=== PATIENT | male | born 1955 | race Caucasian/White ===

== ENCOUNTER 2018-10-14 10:50 | Outpatient (CLI) | payer MEDICAID ==
[~2018-10-14] VITALS: Ht 175.3 cm; Wt 86.8 kg
--- NOTE | ~2018-10-14 | HEMODYNAMI ---
PATIENT:LYNDON JENKINS MEDICAL RECORD: [id number] : 57 LOCATION:[facility] ADMISSION DATE: 10/14/18 Generatedon:10/14/201814:08 Patient name: LYNDON JENKINS Patient #: [id number] SSN: D OB: 1955 Date of study: 10/14/2018 Page: Of Hemodynamic Procedure Report Patient Data Patient Demographics Procedure consent was obtained First Name: LYNDON Gender: Male Last Name: ALICE : 1955 Patient #: [id number] Age: 63 year(s) Race: Additional ID: [id number] Contact details [address]: [address] [place] [address] State: [place] City: [place] Zip code: [address] Past Medical History Allergies: No known allergies Admission Admission Data Admission Date: 10/14/2018 Admission Time: 10:50 Admit Source: Other Lab Results Lab Result Date: 10/14/2018 Lab Result Time: 11:23 Biochemistry Name Units Result Min Max BUN mg/dl 22 --(----)-* 7 18 Creatinine mg/dl 0.8 --(-*--)-- 0.6 1.3 CBC Name Units Result Min Max Hematocrit % 45.8 --(-*--)-- 42 54 Hemoglobin g/dl 15.8 --(--*-)-- 13.5 17.5 Procedure Procedure Types Cath Procedure Diagnostic Procedure Cardioversion External NIRU Procedure Description Procedure Date Procedure Date: 10/14/2018 Procedure Start Time: 13:38 Procedure End Time: 14:06 Procedure Staff Name Function Domingo Wayne MD Performing Physician Alex Castillo RT Monitor Renate Coleman RT Fur Clipper Liz Kelly RN Nurse Alphonso Christina Pallet Repairer Robert Weber MD Additional personnel Procedure Data Cath Procedure Fluoroscopy Diagnostic fluoroscopy Total fluoroscopy Time: 0 time: 0 min min Diagnostic fluoroscopy Total fluoroscopy dose: 0 dose: 0 mGy mGy Contrast Material Contrast Material Type Amount (ml) Isovue 300 0 Estimated blood loss: 0 ml Procedure Complications No complications Procedure Medications Medication Administration Route Dosage Oxygen etCO2 Nasal cannula 2 l/min Hurricaine [place] P.O. 1 Sprays Refer to Anesthesia Notes for Sedation Medications Hemodynamics Rest HGB: 15.8 (g/dl) Heart Rate: 145 (bpm) Snapshots Pre Cath Intra NCS Post Cath Vital Signs Time Heart Resp SPO2 etCO2 NIBP (mmHg) Rhythm Pain Sedation Rate (ipm) (%) (mmHg) Status Level (bpm) 12:52:18 145 21 98 2.9 118/98(106) A-Flutter 0 (11) 10(A) , No pain 12:56:24 144 17 98 0 114/94(106) A-Flutter 0 (11) 10(A) , No pain 13:00:32 145 18 98 11.9 118/84(100) A-Flutter 0 (11) 10(A) , No pain 13:04:41 144 27 98 29.1 103/79(94) A-Flutter 0 (11) 10(A) , No pain 13:08:43 143 17 96 23.1 109/88(92) A-Flutter 0 (11) 10(A) , No pain 13:12:53 143 33 98 24.6 108/77(88) A-Flutter 0 (11) 10(A) , No pain 13:16:57 142 24 97 22.4 114/92(104) A-Flutter 0 (11) 10(A) , No pain 13:21:03 142 14 98 22.4 118/95(107) A-Flutter 0 (11) 10(A) , No pain 13:25:10 145 15 98 16.4 116/87(99) A-Flutter 0 (11) 10(A) , No pain 13:29:16 143 13 96 21.6 115/94(105) A-Flutter 0 (11) 10(A) , No pain 13:33:26 141 15 94 15.7 109/84(100) A-Flutter 0 (11) 10(A) , No pain 13:37:34 139 26 94 16.4 106/81(91) A-Flutter 0 (11) 9(A) , No pain 13:41:40 137 35 96 5.2 110/84(97) A-Flutter 0 (11) 9(A) , No pain 13:45:52 110 16 96 14.2 110/73(85) A-Flutter 0 (11) 9(A) , No pain 13:48:44 90 16 95 0 98/36(78) NSR 0 (11) 9(A) , No pain 13:54:05 116 24 96 0 159/136(150) A-Fib 0 (11) 10(A) , No pain 13:55:11 124 23 96 0 89/78(85) A-Fib 0 (11) 9(A) , No pain 14:04:16 91 24 95 0 103/66(90) NSR 0 (11) 10(A) , No pain Medications Time Medication Route Dose Verified Delivered Reason Notes Effectiv eness by by 13:04:41 Oxygen etCO2 2 Dom[place] used for Nasal l/min St Mehdi Kelly RN procedure cannula 13:04:49 Hurricaine P[address]O. 1 Domingo [place] Per Sc[place] Sprays St Mehdi Kelly RN physician 13:04:53 Refer to Domingo Hill Anesthesia St Mehdi Kelly RN Notes for MD Sedation Medications Procedure Log Time Note 12:35:13 Renate Counts RT(R) sent for patient. Start room use. 12:38:11 Informed consent obtained and on chart 12:38:15 Admit Source: Other 12:38:37 Diagnostic Cath status Elective 12:38:39 Time tracking: Regular hours (M-F 7:00 - 5:00) 12:38:42 Plan of Care:Hemodynamics will remain stable., Cardiac rhythm will remain stable., Comfort level will be maintained., Respiratory function will remain adequate., Patient/ family verbilizes understanding of procedure., Procedure tolerated without complication., Recovers from procedure without complications.. 12:40:08 H&P Date Dictated: 10/09/2018 Within 30 days and on chart., H&P Addendum completed by physician on day of procedure. (MUST COMPLETE FOR ALL OUTPATIENTS). 12:47:25 Patient received from Pre/Post Procedure Room to [facility] 3 Alert and oriented. Tansferred to table in Supine position. 12:47:26 Warm blankets applied, and nichoals hugger turned on for patient comfort. 12:47:26 Correct patient and procedure confirmed by team. 12:47:27 ECG and BP/O2 sat monitors applied to patient. 12:47:28 Pre-procedure instructions explained to patient. 12:47:29 Pre-op teaching completed and patient verbalized understanding. 12:47:30 Family in waiting room. 12:47:32 Patient NPO since Midnight. 12:47:53 Patient allergic to No known allergies 12:47:55 Is the patient allergic to Iodine/contrast media? No. 12:47:57 Is patient on blood thinner?Yes 12:48:09 ACC The patient was administered the following blood thiners within the last 24 hours: Xarelto 12:48:11 Patient diabetic? No. 12:48:15 Previous problem with sedation/anesthesia? No ? 12:48:52 Snore? Yes 12:48:54 If diabetic: On Metformin? Yes 12:48:58 If on Metformin: Last Dose? 10/14/2018 12:49:09 Airway obstruction? Yes copd 12:49:37 Sleep apnea? No 12:49:38 Deviated septum? No 12:49:38 Opens mouth fully? Yes 12:49:50 Sticks out tongue? Yes 12:49:54 Dentures? No ? 12:50:01 IV patent on arrival in left antecubital with 0.9% NaCl at [facility]. 12:50:44 Lab Result : BUN 22 mg/dl 12:50:44 Lab Result : Creatinine 0.8 mg/dl 12:50:44 Lab Result : Hemoglobin 15.8 g/dl 12:50:44 Lab Result : Hematocrit 45.8 % 12:50:46 Lab results completed and on chart. 12:51:11 Alphonso Christina Education Specialist present for NIRU. 12:51:16 Baseline sample Acquired. 12:51:16 Vital chart was started 12:51:21 Rhythm: atrial fibrillation 12:51:23 Full Disclosure recording started 12:51:30 Alarms reviewed by RParas N. 13:04:41 Oxygen 2 l/min etCO2 Nasal cannula was administered by Liz Kelly RN; used for procedure; 13:04:49 Hurricaine [place] 1 Sprays P.O. was administered by Liz Kelly RN; Per physician; 13:04:53 Refer to Anesthesia Notes for Sedation Medications was administered by Buffie Kelly RN; ; 13:20:19 Alphonso Christina present and monitoring patient for TIVA. 13:20:28 Quick Combo opened to sterile field. 13:20:32 Quick combo pads placed on patients chest and back. 13:21:47 Robert Weber MD present and monitoring patient for TIVA. 13:37:52 Physician arrived 13:37:52 --------ALL STOP TIME OUT------ 13:37:53 Final Timeout: patient, procedure, and site verified with staff and physician. All members of the team are in agreement. 13:38:15 Sedation plan: TIVA Medication:Propofol 13:38:48 Procedure started. 13:39:24 NIRU started. 13:44:13 NIRU completed. 13:44:54 Defibrillator synced and charged to 200 Joules. 13:45:09 Shock delivered. 13:45:19 Patient cardioverted to sinus rhythm . 13:56:57 Pt. transitioned into Afib. 13:58:10 Defibrillator synced and charged to 200 Joules. 13:58:13 Shock delivered. 13:58:26 Patient cardioverted to sinus rhythm . 13:58:29 Procedure ended.(Physican Out) 13:58:51 Fluoroscopy time 00.00 minutes. 13:59:16 Flurop Dose total: 0 13:59:16 Fluoroscopy dose: 0 mGy 13:59:26 Contrast amount:Isovue 300 0ml. 13:59:31 Post Procedure Pulses reassessed and unchanged 13:59:33 Post procedure rhythm: sinus rhythm 13:59:36 Estimated blood loss: 0 ml 13:59:39 Post procedure instruction explained to patient.Patient verbalizes understanding. 13:59:42 Patient needs reinforcement of post procedure teaching. 13:59:45 Procedure and supply charges have been captured, reviewed, submitted and are correct. 13:59:48 See physician's report for complete and final results. 14:00:08 Procedure Complication : No complications 14:06:35 Report given to Pre/Post Procedure Room. 14:06:36 Patient transfered to Pre/Post Procedure Room with Stretcher. 14:06:38 Procedure ended. 14:06:38 Full Disclosure recording stopped 14:06:41 End room use (Document Last) Device Usage Item Manufacture Quantity Catalog Hospital Part Current Minimal Lot# / Name Number Charge Number Stock Stock Seri al# Code [facility] 1 [id number] Combo Signature Audit [place] Stage Time Signature Unsigned Intra-Procedure 10/14/2018 Alex Castillo 2:08:23 PM RT(R) Signatures Monitor : Alex Castillo RT Signature : Date : Time : [place] [id number] [facility] [place] [address]
[~2018-10-14 10:50] MED LIST: AMBIEN10 MG PO; BAYER CHEWABLE81 MG PO; DEXILANT60 MG PO; HYDROCODONE-APA1 TAB PO; ISOSORBIDE MONO60 M1 PO; JANUVIA50 MG PO; PLAVIX75 MG PO
[2018-10-14] MEDS ORDERED: LIPITOR10 MG PO (11:05)
[2018-10-14] MEDS ORDERED: BETAPACE 80 MG80 MG PO (11:06)
[2018-10-14] MEDS ORDERED: XARELTO15 MG PO (11:06)
[2018-10-14] MEDS ORDERED: GLYBURIDE5 M1 PO (11:06)
[2018-10-14 11:11] VITALS: BP 124/79; Ht 175.3 cm; Wt 86.8 kg
[2018-10-14 11:30] LABS: BASOPHILS 0.7 % (0-2); EOSINOPHILS 3.6 % (0-7); HEMATOCRIT 45.8 % (42.0-54.0); HEMOGLOBIN 15.8 g/dL (13.5-17.5); IMMATURE GRANULOCYTES 0.7 % (0-5); LYMPHOCYTES 24.1 % (15-50); MCH 33.8 pg (26.0-34.0); MCHC 34.5 g/dL (31.0-37.0); MCV 97.9 fL (80.0-100.0); MEAN PLATELET VOLUME 11.2 fL (7.4-10.4); NEUTROPHILS 59.9 % (40-80); PLATELET COUNT 152 10x3/uL (130-400); RBC 4.68 10x6/uL (4.20-6.10); RDW 13.2 % (11.5-14.5); WBC 7.6 10x3/uL (4.8-10.8)
[2018-10-14 11:40] LABS: CALC OSMOLALITY 285 mosm/kg (275-300); CALCIUM 8.7 mg/dL (8.5-10.1); CARBON DIOXIDE 19.7 mmol/L (21.0-32.0); CHLORIDE - SERUM 108 mmol/L (98-107); CREATININE - SERUM 0.8 mg/dL (0.6-1.3); GLUCOSE 164 mg/dL (74-106); INR 1.09 (0.85-1.17); POTASSIUM - SERUM 4.3 mmol/L (3.5-5.1); PROTIME 13.6 SECONDS (11.6-15.0); SODIUM 140 mmol/L (136-145); UREA NITROGEN 22 mg/dL (7-18); eGFR NON AFRICAN AMERICAN > 90 mL/min (90-120)
--- NOTE | 2018-10-14 14:16 | NUR ---
RECIEVED TO ROOM VIA STRETCHER FROM RECOVERY AGENT WITH SINUS WITH PVC'S. PATIENT CONNECTED TO MONITOR FOR OBSERVATION. NAUSEA IS DENIED CALL LIGHT IN REACH
--- NOTE | 2018-10-14 14:31 | NUR ---
PATIENT REMAINS IN SINUS WITH NEEDS PROVIDED TO BEDSIDE TOLERATING SIPS OF WATER WITH NAUSEA DENIED
--- NOTE | 2018-10-14 14:40 | NUR ---
PATIENT BACK IN A FIB WITH RATE OF 146 DR NINO NOTIFIED.
[2018-10-14] MEDS ORDERED: BETAPACE 120 M120 MG PO (14:46)
--- NOTE | 2018-10-14 14:50 | NUR ---
DR NINO PRESENT WITH NEW ORDERS MEDICATION INCREASED TO BETAPACE 120 MG BID ORDERS CARRIED OUT
--- NOTE | 2018-10-14 14:57 | NUR ---
PIV REMOVED WITH DRESSING APPLIED. PATIENT UP TO GET DRESSED FOR DISCHARGE HOME
--- NOTE | 2018-10-14 14:58 | NUR ---
SANDWICH AND SODA TO BEDSIDE
--- NOTE | 2018-10-14 15:10 | NUR ---
PATIENT TRANSPORTED VIA WC TO PARKING FOR RIDE HOME WITH FRIENDS. NEEDS DENIED NO DISTRESS NOTED
--- NOTE | 2018-10-25 12:54 | OP ---
PATIENT NAME: LYNDON PALENCIA MEDICAL RECORD: [id number] :57 LOCATION:D.[facility] ADMISSION DATE: SURGEON: TROY NINO MD DATE OF OPERATION: 10/14/2018 CARDIOVERSION NOTE After general sedation via TIVA via anesthesia, a single synchronized shock was successful in restoring atrial flutter to normal sinus rhythm. IMPRESSION: Successful cardioversion on Lyndon Palencia from atrial flutter with 2:1 to normal sinus rhythm. TRANSINT:[id number] Voice Confirmation ID: [id number] DOCUMENT ID: [id number] TROY NINO MD at 1254 CC: [id number] DICTATION DATE: 10/14/18 1404 CHALKER SOLES: 10/14/18 1530 [facility] CLI 10/14/18 [place] [address] [place] [address]
--- NOTE | 2018-10-25 12:54 | TEE ---
PATIENT:LYNDON JENKINS MEDICAL RECORD: [id number] LOCATION:D.[facility] AGE OF PATIENT: 63 ADMISSION DATE: 10/14/18 SEX: M REFERRING PHYSICIAN: INTERPRETING PHYSICIAN: TROY NINO MD TRANSESOPHAGEAL ECHOCARDIOGRAM Date: 10/14/18 NIRU CHARGE Y INDICATIONS: ATRIAL FIB , ASSESS FOR CLOTS PRECARDIOVERSION PREMEDICATIONS: PATIENT'S RESPONSE PROCEDURE DOPPLER MEASUREMENTS: LVIT LA PA RA LVOT RVOT Asc. Ao AV Gradient Peak AV Mean AV Area MV Gradient Peak MV Mean MV Area INTERPRETATION: Doppler: 2-D: COLOR FLOW DOPPLER NORMAL SALINE STUDY: MISCELLANOUS: DIAGNOSIS: PLAN: Aeronautical Research Engineer:3 Dr. Suarez Tool Grinder Operator Surface: Marbin GARBER COMMENTS: DATE OF SERVICE: 10/14/2018 TRANSESOPHAGEAL NOTE After general sedation via TIVA via anesthesia, transesophageal Omniplane probe was placed in the distal esophagus and the proximal stomach without difficulty. FINDINGS: LVH is present. LV internal dimensions are normal. LV is globally hypokinetic with reduced EF. Estimated EF is 20% to 25%. Aortic valve is TRANSESOPHAGEAL ECHOCARDIOGRAM REPORT [id number] MIRI JENKINS tricuspid with good valve excursion. Trivial AI by color flow imaging. Left atrium appears normal. Left atrial appendage is well visualized with good contractility. No evidence of thrombus. There is mild MR by color flow imaging. The aortic valve is tricuspid. Good valve excursion. Trivial AI. Right-sided chambers are grossly normal. Mild TR by color flow imaging. TRANSINT:[id number] Voice Confirmation ID: [id number] DOCUMENT ID: [id number] at 1254 CC: [id number] DICTATION DATE: 10/14/18 1403 LITERACY TUTOR: 10/14/18 1528 DEP CLI 10/14/18 [facility] [address] [id number]
== END 2018-10-14 15:12 | disposition home or self-care (01) ==
LOC: D.CATH 10:50
PROVIDERS: Internal Medicine Interventional Cardiology
DX: I48.91 Unspecified atrial fibrillation (principal)

== ENCOUNTER 2018-12-09 12:29 | Observation (INO) | payer MEDICAID ==
[~2018-12-09] VITALS: Ht 170.2 cm; Wt 88.0 kg
[~2018-12-09 12:29] MED LIST changes: +BETAPACE 120 M120 MG PO; +BETAPACE 80 MG80 MG PO; +GLYBURIDE5 M1 PO; +LIPITOR10 MG PO; +XARELTO15 MG PO
[2018-12-09] MEDS ORDERED: ADVAIR HFA 230-12 GM INH (12:33)
[2018-12-09] MEDS ORDERED: FLOVENT DISKU100 MCG INH (12:34)
[2018-12-09] MEDS ORDERED: XOPENEX 0.0.63 MG/3 UPD (12:35)
[2018-12-09 12:55] LABS: BASOPHILS 0.7 % (0-2); EOSINOPHILS 9.6 % (0-7); HEMATOCRIT 47.2 % (42.0-54.0); IMMATURE GRANULOCYTES 0.5 % (0-5); MCH 33.5 pg (26.0-34.0); MCHC 33.9 g/dL (31.0-37.0); MEAN PLATELET VOLUME 11.4 fL (7.4-10.4); MONOCYTES 18.6 % (2-11); NEUTROPHILS 47.6 % (40-80); RBC 4.77 10x6/uL (4.20-6.10); RDW 13.6 % (11.5-14.5); WBC 5.7 10x3/uL (4.8-10.8)
[2018-12-09 12:56] LABS: PLATELET COUNT 112 10x3/uL (130-400)
[2018-12-09 13:02] LABS: APTT 28.3 SECONDS (22.8-39.4); INR 1.17 (0.85-1.17); PROTIME 14.4 SECONDS (11.6-15.0)
[2018-12-09 13:09] LABS: ALKALINE PHOSPHATASE 68 U/L (46-116); ALT (SGPT) 39 U/L (10-68); CALC OSMOLALITY 279 mosm/kg (275-300); CARBON DIOXIDE 22.8 mmol/L (21.0-32.0); CHLORIDE - SERUM 105 mmol/L (98-107); GLUCOSE 128 mg/dL (74-106); POTASSIUM - SERUM 4.8 mmol/L (3.5-5.1); PROTEIN - SERUM 8.1 g/dL (6.4-8.2); SODIUM 138 mmol/L (136-145); UREA NITROGEN 18 mg/dL (7-18); eGFR NON AFRICAN AMERICAN 80 mL/min (90-120)
[2018-12-09 13:21] LABS: CKMB 1.1 U/L (0.0-3.6); CREATINE KINASE 74 UL (21-232); PRO BNP 1139 pg/mL (0-125); TROPONIN-I < 0.017 ng/mL (0.000-0.060)
[2018-12-09 13:30] VITALS: BP 111/70
[2018-12-09 14:30] VITALS: BP 109/60
[2018-12-09 15:00] VITALS: BP 113/62
[2018-12-09 15:25] VITALS: BP 140/75; BMI 28.8
--- NOTE | 2018-12-09 17:56 | NUR ---
20 GUAGE PIV INSERTED TO R.FA X1 STICK FOR BANANA BAG. CURRENTLY WAITING ON PHARMACY TO PROVIDE.
--- NOTE | 2018-12-09 19:37 | NUR ---
RESUMING PATIENT CARE. PATIENT IS ALERT AND ORIENTED. RESPIRATIONS ARE EVEN AND UNLABORED. NO S/S OF DISTRESS. NO C/O PAIN. DENIES NEEDS AT THIS TIME. CALL LIGHT WITHIN REACH. WILL CPOC.
[2018-12-09 20:00] VITALS: BP 105/60
[2018-12-10] VITALS: BP 102/57
--- NOTE | 2018-12-10 03:13 | NUR ---
PATIENT RESTING COMFORTABLY IN BED. PATIENT AWAKE WATCHING TV. RESPIRATIONS ARE EVEN AND UNLABORED. DENIES NEEDS AT THIS TIME. NO S/S OF DISTRESS. NO C/O PAIN. CALL LIGHT WITHIN REACH. WILL CPOC.
[2018-12-10 04:00] VITALS: BP 126/80
[2018-12-10 06:00] LABS: BASOPHILS 0.3 % (0-2); EOSINOPHILS 8.2 % (0-7); HEMATOCRIT 44.2 % (42.0-54.0); HEMOGLOBIN 14.6 g/dL (13.5-17.5); IMMATURE GRANULOCYTES 0.4 % (0-5); LYMPHOCYTES 25.3 % (15-50); MEAN PLATELET VOLUME 11.8 fL (7.4-10.4); MONOCYTES 17.8 % (2-11); PLATELET COUNT 109 10x3/uL (130-400); RBC 4.42 10x6/uL (4.20-6.10); RDW 13.9 % (11.5-14.5); WBC 6.8 10x3/uL (4.8-10.8)
[2018-12-10 06:26] LABS: CALC OSMOLALITY 280 mosm/kg (275-300); CALCIUM 7.9 mg/dL (8.5-10.1); CARBON DIOXIDE 23.1 mmol/L (21.0-32.0); CHLORIDE - SERUM 106 mmol/L (98-107); CREATININE - SERUM 0.8 mg/dL (0.6-1.3); GLUCOSE 121 mg/dL (74-106); POTASSIUM - SERUM 4.4 mmol/L (3.5-5.1); SODIUM 139 mmol/L (136-145); UREA NITROGEN 19 mg/dL (7-18); eGFR NON AFRICAN AMERICAN > 90 mL/min (90-120)
[2018-12-10 08:22] VITALS: BP 151/91
[2018-12-10 09:29] VITALS: Ht 170.2 cm; Wt 88.0 kg
[2018-12-10 12:07] VITALS: BP 107/58
[2018-12-10] MEDS ORDERED: CARDIZEM60 MG PO (13:04)
[2018-12-10 15:30] VITALS: BP 110/61
--- NOTE | 2018-12-10 15:31 | NUR ---
IV AND TELEMETRY DCD. DC PLANS GIVEN. UNDERSTANDING VOICED. ESCORTED TO CAR BY W/C.
--- NOTE | 2018-12-10 17:20 | MORECARE ---
CASE MANAGEMENT DISCHARGE SUMMARY PATIENT: LYNDON JENKINS UNIT: [id number] ADM DATE: 12/09/18 AGE: 63 : 57 SEX: M ROOM/BED: D.2120 AUTHOR: BEAN NAVARRETE PHYSICIAN: REFERRING PHYSICIAN: CARLOS REAGAN MD DATE OF SERVICE: 12/10/18 Discharge Plan Patient Name: LYNDON JENKINS Facility: [facility]:[place] : 1955 Planned Disposition: Home Anticipated Discharge Date: 12/10/18 Discharge Date: 12/10/2018 Expected LOS: 1 Initial Reviewer: [email or web address] Initial Review Date: 12/10/2018 Generated: 12/10/18 6:20 pm Patient Name: LYNDON JENKINS Page [id number] at 1720 All edits/amendments must be made on the electronic document DICTATION DATE: 12/10/181719 TELEPHONE LINEWORKER: DAVID 12/10/181719 RPT#: [id number] DC DATE:12/10/18 STATUS: DIS IN [facility] [address] [place] [address] END OF REPORT
== END 2018-12-10 15:32 | disposition home or self-care (01) ==
LOC: D.ER 12:29 → OBSVTIME 14:05 → D.M2 14:05
PROVIDERS: Emergency Medicine; Internal Medicine Cardiovascular Disease; ADMIT Emergency Medicine; ATTEND Emergency Medicine
DX: I48.92 Unspecified atrial flutter (principal); I48.91 Unspecified atrial fibrillation; E11.65 Type 2 diabetes mellitus with hyperglycemia; E11.51 Type 2 diabetes mellitus with diabetic peripheral angiopathy without gangrene; I10 Essential (primary) hypertension; I25.10 Atherosclerotic heart disease of native coronary artery without angina pectoris; F17.213 Nicotine dependence, cigarettes, with withdrawal; Z72.89 Other problems related to lifestyle; J44.9 Chronic obstructive pulmonary disease, unspecified

== ENCOUNTER → 2020-03-02 10:33 | Outpatient (CLI) | payer MEDICAID ==
[2018-12-10 09:29] VITALS: BMI 30.4
[~2020-03-02 10:33] MED LIST changes: +ADVAIR HFA 230-12 GM INH; +CARDIZEM60 MG PO; +FLOVENT DISKU100 MCG INH; +XOPENEX 0.0.63 MG/3 UPD
--- NOTE | 2020-03-04 08:51 | EC ---
PATIENT:LYNDON JENKINS DATE OF SERVICE: 03/02/20 SEX: M MEDICAL RECORD: [id number] DATE OF : 57 LOCATION:[facility] AGE OF PATIENT: 65 ADMISSION DATE: 03/02/20 REFERRING PHYSICIAN: INTERPRETING PHYSICIAN: TROY NINO MD ECHOCARDIOGRAM REPORT ECHO CHARGES 4 ECHO COMPLETE Date: 03/02/20 CLINICAL DIAGNOSIS: CAD/ASSESS EF / MR/TR HX OF ATRAIL FIB/FLUTTER ECHOCARDIOGRAPHIC MEASUREMENTS (adult normal given) AC root (d.<3.7cm) 3.1 cm LV Septum d (<1.2 cm> 1.1 cm Valve Excursion 1.8 cm LV Septum (systole) 1.4 cm Left Atria (s.<4.0cm> 4.1 cm LVPW d(<1.2cm) 1.2 cm RV (d.<2.3cm) 4.3 cm LVPW (sytole) 1.8 cm LV diastole(<5.6CM) 5.7 cm MV E-F(>70mm/sec) cm LV systole 3.5 cm LVOT Diameter 1.7 cm MV exc.(>10mm) 1.5 cm Est.ejection fraction (50-75%) % DOPPLER: LVIT cm/sec A cm/sec E 126.0 cm/sec LA cm/sec RVSP 34 mmHg LVOT 134 cm/sec AOP1/2T m/s Asc. Ao 227 cm/sec RVOT 86 cm/sec RA cm/sec PA 143 cm/sec AV Gradient Peak 20.68mmHg AV Mean 10.72mmHg AV Area 1.3 cm MV Gradient Peak 9.37 mmHg MV Mean 3.72 mmHg MV Area cm COMMENTS: Light Rail Operator: 2 TRAV GARBER Receptionist Doctor'S Office: 3 Dr. Suarez TAPE# PACS Pericardial Effusion N DATE OF SERVICE: Adequate 2D, color flow imaging, spectral Doppler, and M-Mode LVH is present. LV internal dimensions are normal. LV mildly globally hypo, EF lower limits of normal to mildly reduced 45-50%. Aortic valve is sclerosed without evidence of stenosis by Doppler interrogation. Left atrium is minimally dilated at 4.1 cm. Mitral valve shows no prolapse. Trace MR. Right-sided chambers are grossly normal. Trace TR. ECHOCARDIOGRAM REPORT [id number] LYNDON JENKINS TRANSINT:[id number] Voice Confirmation ID: [id number] DOCUMENT ID: [id number] TROY NINO MD at 0851 CC: [id number] DICTATION DATE: 03/03/20 1430 LABORATORY CLERK: 03/03/20 1513 DEP CLI 03/02/20 [facility] [address] [id number]
== END | disposition home or self-care (01) ==
LOC: D.HCCECHO 02-24 13:30
PROVIDERS: ATTEND Internal Medicine Interventional Cardiology
DX: I25.10 Atherosclerotic heart disease of native coronary artery without angina pectoris (principal)

== ENCOUNTER → 2020-07-12 07:14 | Outpatient (CLI) | payer MEDICAID ==
[2018-12-10 09:29] VITALS: BMI 30.4
== END | disposition home or self-care (01) ==
LOC: D.MRI 07:14
PROVIDERS: ATTEND Orthopaedic Surgery
DX: M87.859 Other osteonecrosis, unspecified femur (principal)

== ENCOUNTER 2020-12-11 04:37 | Inpatient (IN) | payer MEDICAID ==
[~2020-12-11] VITALS: Ht 170.2 cm; Wt 88.2 kg
[2020-12-11 05:32] LABS: BASOPHILS 0.3 % (0-2); EOSINOPHILS 4.6 % (0-7); HEMATOCRIT 46.9 % (42.0-54.0); HEMOGLOBIN 15.5 g/dL (13.5-17.5); IMMATURE GRANULOCYTES 0.9 % (0-5); LYMPHOCYTES 29.3 % (15-50); MCH 32.6 pg (26.0-34.0); MCV 98.5 fL (80.0-100.0); MEAN PLATELET VOLUME 11.1 fL (7.4-10.4); MONOCYTES 7.6 % (2-11); NEUTROPHIL ABS# 3.71 10x3/uL (1.78-5.38); NEUTROPHILS 57.3 % (40-80); PLATELET COUNT 124 10x3/uL (130-400); RBC 4.76 10x6/uL (4.20-6.10); RDW 13.8 % (11.5-14.5); WBC 6.5 10x3/uL (4.8-10.8)
--- NOTE | 2020-12-11 05:50 | NUR ---
URINE SPEC TO LAB
[2020-12-11 05:53] LABS: APTT 29.2 SECONDS (22.8-39.4); INR 1.18 (0.85-1.17); PROTIME 13.9 SECONDS (11.6-15.0)
[2020-12-11 05:56] LABS: BILIRUBIN NEGATIVE (NEGATIVE); KETONE NEGATIVE (NEGATIVE); NITRITE NEGATIVE (NEGATIVE); UROBILINOGEN NORMAL mg/dL (< 2)
[2020-12-11 06:07] LABS: CALC OSMOLALITY 272 mosm/kg (275-300); CALCIUM 8.7 mg/dL (8.5-10.1); CARBON DIOXIDE 18.7 mmol/L (21.0-32.0); CHLORIDE - SERUM 103 mmol/L (98-107); GLUCOSE 122 mg/dL (74-106); POTASSIUM - SERUM 3.7 mmol/L (3.5-5.1); SODIUM 135 mmol/L (136-145); UREA NITROGEN 17 mg/dL (7-18); eGFR NON AFRICAN AMERICAN 80 mL/min (90-120)
[2020-12-11 06:19] LABS: UDS - AMPHET NEGATIVE QUAL (NEGATIVE); UDS - BARB NEGATIVE QUAL (NEGATIVE); UDS - BENZO NEGATIVE QUAL (NEGATIVE); UDS - COCAINE NEGATIVE QUAL (NEGATIVE); UDS - OPIATE NEGATIVE QUAL (NEGATIVE); UDS - PCP NEGATIVE QUAL (NEGATIVE); UDS - THC NEGATIVE QUAL (NEGATIVE)
[2020-12-11 06:23] VITALS: BP 109/72
[2020-12-11 06:23] LABS: ALBUMIN 3.9 g/dL (3.4-5.0); ALKALINE PHOSPHATASE 78 U/L (30-120); ALT (SGPT) 33 U/L (10-68); BILIRUBIN - TOTAL 0.32 mg/dL (0.2-1.3); CKMB 3.3 U/L (0.0-3.6); CREATINE KINASE 123 UL (21-232); MAGNESIUM - SERUM 2.4 mg/dL (1.8-2.4); TROPONIN-I 0.018 ng/mL (0.000-0.060)
--- NOTE | 2020-12-11 07:20 | NUR ---
PATIENT IS OOB STANDING AT BEDSIDE USING URINAL. ASSISTED BACK TO BED. PATIENT IS UNAWARE OF LOCATION AND EVENTS LEADING UP TO ER VISIT. WHEN HIGH HEART RATE IS DISCUSSED MARCIE STATES "MY HEART RATE HAS ALWAYS BEEN HIGH". PATIENT IS COOPERATIVE AND PLEASANT.
[2020-12-11 08:28] VITALS: BP 96/71
--- NOTE | 2020-12-11 08:50 | NUR ---
DRIED BLOOD CLEANED FROM HAIR AND SKIN.
--- NOTE | 2020-12-11 09:15 | NUR ---
REPORT CALLED TO [facility].
--- NOTE | 2020-12-11 09:23 | NUR ---
DR. SPICER NOTIFIED OF CONSULT BY PHONE.
[2020-12-11 10:18] VITALS: BP 107/77; Ht 170.2 cm; Wt 88.2 kg
--- NOTE | 2020-12-11 13:55 | NUR ---
TELEMETRY CAF. HR 60. WILL CONT. TO MONITOR.
--- NOTE | 2020-12-11 14:24 | CN ---
PATIENT NAME:LYNDON JENKINS MEDICAL RECORD: [id number] : 57 LOCATION:D.M2 D.2105 ADMIT DATE: 12/11/20 ACCOUNT: [id number] CONSULTING PHYSICIAN: SHIVA SOTO MD REFERRING PHYSICIAN: OBINNA MORGAN MD DATE OF CONSULTATION: 12/11/2020 HISTORY OF PRESENT ILLNESS: The patient is a 65-year-old male with history of chronic atrial fibrillation, hypertension, hyperlipidemia, who was admitted with ETOH intoxication associated with syncope. The patient was noted to have atrial fibrillation with rapid ventricular response. I asked to evaluate from a cardiovascular standpoint. PAST MEDICAL HISTORY: Significant for; 1. Chronic atrial fibrillation. 2. Hypertension. 3. Hyperlipidemia. 4. ETOH intoxication. 5. Presyncope or syncope secondary to ETOH intoxication. MEDICATIONS: Outpatient; 1. Xarelto 15 mg daily. 2. Betapace 120 mg b.i.d. 3. Atorvastatin 10 mg daily. 4. Ambien 10 mg daily. 5. Diltiazem 60 mg b.i.d. CURRENT MEDICATION: Diltiazem IV drip. PHYSICAL EXAMINATION: GENERAL: Middle-aged white male, in no apparent distress. VITAL SIGNS: Blood pressure 110s over 80s, pulse 130s (irregular). HEENT: Sclerae is clear; conjunctivae pink. NECK: Supple; no appreciated JVD. HEART: Irregular rhythm and rate with tachycardic. LUNGS: Clear bilaterally. ABDOMEN: Benign. EXTREMITIES: Negative for edema. NEUROLOGIC: Nonfocal. LABORATORY DATA: Sodium 135, potassium 3.7, BUN 17, creatinine is 1. Troponin 0.018 (negative). Hemoglobin and hematocrit 15.5 and 46.9, platelet count 124. DIAGNOSTIC DATA: EKG: Atrial flutter 136 beats per minute. ASSESSMENT: 1. History of atrial dysrhythmia, has atrial fibrillation/atrial flutter. 2. Hypertension. 3. Hyperlipidemia. 4. ETOH intoxication. 5. Status post presyncope or syncope secondary to ETOH intoxication. PLAN: Continue current medical management at this time. I recommend restart the patient's home cardiac medication regimen. Adjust diltiazem drip as clinically indicated for rate controll. CONSULT REPORT [id number] LYNDON JENKINS Further recommendation as clinically indicated. Thank you for allowing us to participate in the care of this patient. TRANSINT:[id number] Voice Confirmation ID: [id number] DOCUMENT ID: [id number] SHIVA SOTO MD at 1424 CC: [id number] DICTATION DATE: 12/11/20950 PERINATAL COORDINATOR: 12/11/20 1411 ADM IN [address] [id number] [place] [address]
[2020-12-11 16:32] VITALS: BP 89/65
--- NOTE | 2020-12-11 20:08 | NUR ---
INITIAL ROUNDS COMPLETED AT 1915 HRS. PT DENIED ANY DISCOMOFRT. ASSESSMENT COMPLETED AT 1950 HRS. SR PER CM HR 63. PT ALERT AND ORIENTED TO PERSON, PLACE AND TIME. LOPEZ. WOUND NOTED TO L FOREHEAD. O2 2LNC. LUNGS CTA. LOPEZ. PALPABLE PERIPHERAL PULSES. SR UP X1, CALL LIGHT WITHIN REACH.
[2020-12-11 20:38] VITALS: BP 109/63
--- NOTE | 2020-12-11 21:24 | NUR ---
PM MEDS GIVEN. NO CHANGE IN STATUS NOTED. CALL LIGHT WITHIN REACH.
[2020-12-12 00:12] VITALS: BP 94/54
--- NOTE | 2020-12-12 00:34 | NUR ---
VSS. SR PER CM. PT RESTING WITH EYES CLOSED. RESP EVEN AND REULAR. CALL LIGHT WITHIN REACH.
--- NOTE | 2020-12-12 02:07 | NUR ---
PT IS RESTING WITH EYES CLOSED. RESP EVEN AND REGULAR. CALL LIGHT WITHIN REACH.
[2020-12-12 04:06] VITALS: BP 145/59
--- NOTE | 2020-12-12 04:35 | NUR ---
awake; madisyn any discomfort. vss. no change in neuro status noted. call light within reach.
[2020-12-12 05:28] LABS: BASOPHILS 0.2 % (0-2); EOSINOPHILS 1.3 % (0-7); HEMATOCRIT 44.8 % (42.0-54.0); HEMOGLOBIN 15.1 g/dL (13.5-17.5); IMMATURE GRANULOCYTES 0.5 % (0-5); LYMPHOCYTE ABS# 2.31 10x3/uL (1.32-3.57); LYMPHOCYTES 21.6 % (15-50); MCH 32.7 pg (26.0-34.0); MCHC 33.7 g/dL (31.0-37.0); MEAN PLATELET VOLUME 11.7 fL (7.4-10.4); MONOCYTES 9.6 % (2-11); NEUTROPHIL ABS# 7.14 10x3/uL (1.78-5.38); NEUTROPHILS 66.8 % (40-80); PLATELET COUNT 148 10x3/uL (130-400); RBC 4.62 10x6/uL (4.20-6.10); RDW 13.8 % (11.5-14.5)
[2020-12-12 05:40] LABS: WBC 10.7 10x3/uL (4.8-10.8)
--- NOTE | 2020-12-12 05:48 | NUR ---
VSS THROUGHUT NIGHT. SR PER CM. PT DENIED ANY DISCOMFORT. NO CHANGE TO NEURO STATUS NOTED. NEEDS MET; WILL CONTINUE TO MONITOR.
[2020-12-12 06:04] LABS: ALBUMIN 3.5 g/dL (3.4-5.0); ALKALINE PHOSPHATASE 97 U/L (30-120); CALCIUM 8.6 mg/dL (8.5-10.1); CARBON DIOXIDE 18.3 mmol/L (21.0-32.0); CHLORIDE - SERUM 102 mmol/L (98-107); CKMB 1.8 U/L (0.0-3.6); CREATINE KINASE 63 UL (21-232); GLUCOSE 135 mg/dL (74-106); MAGNESIUM - SERUM 2.3 mg/dL (1.8-2.4); PHOSPHOROUS 4.6 mg/dL (2.5-4.9); PROTEIN - SERUM 7.2 g/dL (6.4-8.2); SODIUM 133 mmol/L (136-145); TROPONIN-I 0.026 ng/mL (0.000-0.060)
[2020-12-12 06:07] LABS: ALT (SGPT) 216 U/L (10-68); CALC OSMOLALITY 276 mosm/kg (275-300); CREATININE - SERUM 1.3 mg/dL (0.6-1.3); POTASSIUM - SERUM 4.3 mmol/L (3.5-5.1); UREA NITROGEN 38 mg/dL (7-18); eGFR NON AFRICAN AMERICAN 59 mL/min (90-120)
[2020-12-12 08:00] VITALS: BP 113/80
--- NOTE | 2020-12-12 08:28 | NUR ---
AM MEDS GIVEN PER EMAR. PT SITTING ON SIDE OF BED EATING BREAKFAST. AAOX3, PLEASANT. RR EVEN NON LABORED. NO NEEDS VOICED AT THIS TIME. CLWR.
--- NOTE | 2020-12-12 10:02 | NUR ---
PT SITTING UP IN BED WATCHING TV, RR EVEN NON LABORED ON ROOM AIR. PT AWAKE AND ALERT, NO NEEDS VOICED. CLWR.
--- NOTE | 2020-12-12 10:22 | NUR ---
PT AWARE HE WILL BE D/C HOME TODAY. PT STATES HE HAS A NUMBER TO CALL WHEN HE NEEDS TO FOR TRANSPORTATION HOME. RR EVEN NON LABORED ON ROOM AIR, NO NEEDS VOICED AT THIS TIME. CLWR.
--- NOTE | 2020-12-12 12:20 | NUR ---
D/C INSTRUCTIONS GIVEN AT THIS TIME. PT DENIES ANY QUESTIONS. PT STATES HE DOES NOT NEED ASSISTANCE GETTING DRESSED. PT CALLED FAMILY MEMBER WITH NURSE IN ROOM. IV D/C , DRESSING APPLIED AND CATHETER INTACT. NO NEEDS VOICED. INSTRUCTED PT USE CALL LIGHT WHEN HIS RIDE ARRIVES.
--- NOTE | 2020-12-12 12:55 | NUR ---
PT WHEELED TO PRIVATE VEHICLE WITH ALL BELONGINGS AT THIS TIME. NO DISTRESS NOTED ON DEPARTURE.
--- NOTE | 2020-12-14 10:01 | EC ---
PATIENT:LYNDON JENKINS DATE OF SERVICE: 12/11/20 SEX: M MEDICAL RECORD: [id number] DATE OF : 57 LOCATION:D.M2 D.210 AGE OF PATIENT: 65 ADMISSION DATE: 12/11/20 REFERRING PHYSICIAN: INTERPRETING PHYSICIAN: TROY NINO MD ECHOCARDIOGRAM REPORT ECHO CHARGES 4 ECHO COMPLETE Date: 12/12/20 CLINICAL DIAGNOSIS: AFIB ECHOCARDIOGRAPHIC MEASUREMENTS (adult normal given) AC root (d.<3.7cm) 2.8 cm LV Septum d (<1.2 cm> 1.2 cm Valve Excursion 1.4 cm LV Septum (systole) 1.3 cm Left Atria (s.<4.0cm> 4.2 cm LVPW d(<1.2cm) 0.7 cm RV (d.<2.3cm) 3.1 cm LVPW (sytole) 0.9 cm LV diastole(<5.6CM) 6.3 cm MV E-F(>70mm/sec) cm LV systole 5.4 cm LVOT Diameter 1.9 cm MV exc.(>10mm) 1.1 cm Est.ejection fraction (50-75%) % DOPPLER: LVIT cm/sec A 38 cm/sec E 115 cm/sec LA cm/sec RVSP 35 mmHg LVOT 162 cm/sec AOP1/2T m/s Asc. Ao 196 cm/sec RVOT 58 cm/sec RA cm/sec PA 104 cm/sec AV Gradient Peak 15.3 mmHg AV Mean 7.8 mmHg AV Area 2.2 cm MV Gradient Peak 5.7 mmHg MV Mean 1.9 mmHg MV Area cm COMMENTS: Occupational Therapy Department Chair: Rachael ZARAGOZA Nurseryperson: 3 Dr. Suarez TAPE# Pericardial Effusion N DATE OF SERVICE: Adequate 2D, color-flow imaging, spectral Doppler, and M-Mode FINDINGS: Borderline LVH. LV internal dimensions are upper limits of normal to mildly dilated. LV is globally hypokinetic. LV function mildly reduced at 40-45%. Aortic valve sclerosed without evidence of stenosis by Doppler interrogation. Left atrium is mildly dilated at 4.2 cm. Mitral valve shows no prolapse. Mild MR. Right-sided chambers are grossly normal. Trace TR. ECHOCARDIOGRAM REPORT [id number] LYNDON JENKINS TRANSINT:[id number] Voice Confirmation ID: [id number] DOCUMENT ID: [id number] TROY NINO MD at 1001 CC: [id number] DICTATION DATE: 12/13/20 08 SENIOR INFORMATION SECURITY CONSULTANT: 12/13/20 0858 DIS IN 12/12/20 [id number] [place] [id number]
== END 2020-12-12 12:55 | disposition home or self-care (01) | DRG 897 ==
LOC: D.ER 04:37 → D.M2 07:04
PROVIDERS: Family Medicine; ADMIT Emergency Medicine; ATTEND Emergency Medicine
PROC: 0HQ0XZZ Repair Scalp Skin, External Approach (ICD-10-PCS; principal; 2020-12-11)
DX: F10.129 Alcohol abuse with intoxication, unspecified (principal); I48.92 Unspecified atrial flutter; E87.1 Hypo-osmolality and hyponatremia; F17.203 Nicotine dependence unspecified, with withdrawal; Z79.01 Long term (current) use of anticoagulants; E11.65 Type 2 diabetes mellitus with hyperglycemia; R74.01 Elevation of levels of liver transaminase levels; S01.01XA Laceration without foreign body of scalp, initial encounter; W19.XXXA Unspecified fall, initial encounter